=== PATIENT | male | born 1960 | race Caucasian/White ===

== ENCOUNTER 2018-09-20 18:09 | Inpatient (IN) ==
[2018-09-20 18:52] LABS: Basophils % 0.2 % (0.0-0.8); Eosinophils % 0.1 % (0.00-10.9); Hematocrit 40.2 VOL% (42.0-52.0); Hemoglobin 12.9 GM/DL (14.0-18.0); Immature Granulocytes % 2.7 %; Immature Granulocytes Absolute 0.32 #; Lymphocytes # 1.1 10*3/uL (1.4-4.0); Lymphocytes % 9.8 % (21.2-54.2); Mean Corpuscular HGB Conc 32.1 GM/DL (32-36); Mean Corpuscular Hemoglobin 27 PG (27-34); Mean Corpuscular Volume 85.4 FL (87-102); Mean Platelet Volume 10.3 FL (9.6-12.0); Monocytes # 0.6 10*3/uL (0.11-0.8); Monocytes % 5.1 % (1.7-12.7); NRBC # 0.03 10*3/uL; Neutrophils # 9.6 10*3/uL (1.4-7.4); Neutrophils % 82.1 % (38.7-73.9); Platelet Count 253 T/CUMM (130-400); Red Blood Count 4.71 MC/CUMM (3.8-5.5); Red Cell Distribution Width 14.9 % (9.3-17.3); White Blood Count 11.7 T/CUMM (4-12)
[2018-09-20 19:05] LABS: Partial Thromboplastin Time 23.6 SECS (0-40)
[2018-09-20 19:10] LABS: Alanine Aminotransferase 17 U/L (16-61); Alkaline Phosphatase 46 U/L (45-117); Aspartate Amino Transferase 5 U/L (0-37); Blood Urea Nitrogen 12 MG/DL (7-18); Calcium 8.1 MG/DL (8.5-10.1); Glucose 349 MG/DL (74-106); Osmolality,Calculated 286.8 MOS/KG (273-304); Potassium 3.9 MMOL/L (3.5-5.1); Sodium 137 MMOL/L (136-145); Total Protein 7.1 G/DL (6.4-8.3); Troponin I 0.026 NG/ML (0.00-0.045)
[2018-09-20 19:11] LABS: Barbiturates Screen,Urine Negative (Negative); Benzodiazepines Screen,Urine Negative (Negative); Cannabinoid Screen,Urine Negative (Negative); Opiate Screen,Urine Negative (Negative); Phencyclidine Screen,Urine Negative (Negative)
[2018-09-20 19:25] LABS: Apearance,Urine Slightly Hazy (Clear); Bacteria,Urine Occasional /HPF (Few); Bilirubin,Urine Negative (Negative); Blood, Urine Negative (Negative); Glucose,Urine (UA) >=500 mg/dL (Negative); Hyaline Casts,Urine 15 /LPF (0-3); Ketones,Urine Negative (Negative); Mucus,Urine Occasional /LPF (Occasional); Nitrite,Urine Negative (Negative); Protein,Urine 100 MG/DL; RBC,Urine 3 /HPF (0-4); Urine Color Yellow (Yellow); Urine Specific Gravity 1.026 (1.001-1.035); WBC,Urine 3 /HPF (0-6)
[2018-09-20] MEDS ORDERED: ALTEPLASE 100 MG/100 ML BOTTLE ONE (19:44)
[2018-09-20] MEDS ORDERED: ALTEPLASE IV ONE (20:00)
[2018-09-20] MEDS ORDERED: ALTEPLASE 9 MG in PREMIX 1 EACH IV STA (20:00)
[2018-09-20] MEDS: SODIUM CHLORIDE 0.9% 1,000 ML IV SCH (23:45)
[2018-09-21 01:05] LABS: Basophils % 0.3 % (0.0-0.8); Eosinophils % 0.1 % (0.00-10.9); Hemoglobin 13.5 GM/DL (14.0-18.0); Immature Granulocytes % 2.7 %; Immature Granulocytes Absolute 0.38 #; Lymphocytes # 1.3 10*3/uL (1.4-4.0); Lymphocytes % 9.3 % (21.2-54.2); Mean Corpuscular HGB Conc 32.1 GM/DL (32-36); Mean Corpuscular Hemoglobin 28 PG (27-34); Mean Corpuscular Volume 85.7 FL (87-102); Mean Platelet Volume 11.7 FL (9.6-12.0); Monocytes # 0.8 10*3/uL (0.11-0.8); Monocytes % 5.4 % (1.7-12.7); NRBC # 0.02 10*3/uL; Neutrophils # 11.7 10*3/uL (1.4-7.4); Neutrophils % 82.2 % (38.7-73.9); Platelet Count 272 T/CUMM (130-400); Red Cell Distribution Width 15.4 % (9.3-17.3); White Blood Count 14.3 T/CUMM (4-12)
[2018-09-21] MEDS ORDERED: GLUCAGON 1 MG VIAL IM PRN (08:10)
[2018-09-21] MEDS ORDERED: DEXTROSE 50% 25 GM/50 ML SYRINGE IV PRN (08:10)
[2018-09-21] MEDS: INSULIN LISPRO 100 UNIT/ML SUBCUT SCH ×4 (09:28→21:31)
[2018-09-21] MEDS: INSULIN GLARGINE 100 UNIT/ML SUBCUT SCH (09:28)
[2018-09-21] MEDS: SODIUM CHLORIDE 0.9% 1,000 ML IV SCH (13:46)
[2018-09-21] MEDS: LABETALOL 20 MG/4 ML SYRINGE IV PRN ×3 (14:27→22:48)
[2018-09-21] MEDS: ASPIRIN CHEW 81 MG TABLET PO SCH (21:31)
[2018-09-21] MEDS: ATORVASTATIN 80 MG TABLET PO SCH (21:31)
[2018-09-21 21:34] LABS: Basophils % 0.1 % (0.0-0.8); Eosinophils % 0.2 % (0.00-10.9); Hematocrit 44.9 VOL% (42.0-52.0); Hemoglobin 14.4 GM/DL (14.0-18.0); Immature Granulocytes % 2.8 %; Immature Granulocytes Absolute 0.44 #; Lymphocytes % 6.1 % (21.2-54.2); Mean Corpuscular HGB Conc 32.1 GM/DL (32-36); Mean Corpuscular Hemoglobin 28 PG (27-34); Mean Corpuscular Volume 85.9 FL (87-102); Mean Platelet Volume 10.2 FL (9.6-12.0); Monocytes % 6.4 % (1.7-12.7); Neutrophils % 84.4 % (38.7-73.9); Platelet Count 270 T/CUMM (130-400); Red Blood Count 5.23 MC/CUMM (3.8-5.5); Red Cell Distribution Width 15.2 % (9.3-17.3); White Blood Count 15.5 T/CUMM (4-12)
[2018-09-21 22:12] LABS: Cholesterol 159 MG/DL (50-200); HDL Cholesterol 41 MG/DL (40-60); Risk Ratio 3.88; Triglycerides 120 MG/DL (2-150); Troponin I < 0.015 NG/ML (0.00-0.045)
[2018-09-22] MEDS: INSULIN LISPRO 100 UNIT/ML SUBCUT SCH ×7 (00:45→23:49)
[2018-09-22] MEDS: niCARdipine INJ 25 MG in SODIUM CHLORIDE 0.9% 240 ML IV PRN (01:28)
[2018-09-22 04:13] LABS: Basophils # 0.1 10*3/uL (0.0-0.2); Basophils % 0.3 % (0.0-0.8); Eosinophils % 0.1 % (0.00-10.9); Hematocrit 46.6 VOL% (42.0-52.0); Hemoglobin 14.8 GM/DL (14.0-18.0); Immature Granulocytes Absolute 0.62 #; Lymphocytes # 1.3 10*3/uL (1.4-4.0); Lymphocytes % 8.4 % (21.2-54.2); Mean Corpuscular HGB Conc 31.8 GM/DL (32-36); Mean Corpuscular Hemoglobin 27 PG (27-34); Mean Corpuscular Volume 86.3 FL (87-102); Mean Platelet Volume 10.5 FL (9.6-12.0); Monocytes # 1.2 10*3/uL (0.11-0.8); Monocytes % 7.5 % (1.7-12.7); Neutrophils # 12.2 10*3/uL (1.4-7.4); Neutrophils % 79.7 % (38.7-73.9); Platelet Count 281 T/CUMM (130-400); Red Cell Distribution Width 15.4 % (9.3-17.3); White Blood Count 15.4 T/CUMM (4-12)
[2018-09-22 04:32] LABS: Calcium 8.7 MG/DL (8.5-10.1); Osmolality,Calculated 281.5 MOS/KG (273-304); Potassium 3.4 MMOL/L (3.5-5.1)
[2018-09-22 04:55] LABS: Band Neutrophils 5 % (0-10); Lymphocytes 10 % (20-55); Segmented Neutrophils 81 % (50-85); Total Cells Counted 100
[2018-09-22 04:56] LABS: Anisocytosis 1+; Platelet Estimate Normal
[2018-09-22] MEDS: INSULIN GLARGINE 100 UNIT/ML SUBCUT SCH (09:04)
[2018-09-22] MEDS: ASPIRIN CHEW 81 MG TABLET PO SCH (09:06)
[2018-09-22] MEDS ORDERED: DEXTROSE 50% 25 GM/50 ML SYRINGE IV PRN (10:21)
[2018-09-22] MEDS: LABETALOL 20 MG/4 ML SYRINGE IV PRN (16:52)
[2018-09-22] MEDS: ATORVASTATIN 80 MG TABLET PO SCH (20:14)
[2018-09-23] MEDS: INSULIN LISPRO 100 UNIT/ML SUBCUT SCH ×5 (04:14→22:48)
[2018-09-23 04:50] LABS: ABG Base Excess 1.6 MMOL/L (-2.5-2.5); ABG HCO3 25.8 MMOL/L (20-26); ABG PH 7.459 (7.35-7.45); ABG PO2 85.7 MM HG (80-95); ABG TCO2 20.9 MMOL/L (23-27); Allen Test Positive
[2018-09-23 04:56] LABS: Basophils % 0.3 % (0.0-0.8); Eosinophils % 0.1 % (0.00-10.9); Hematocrit 46.5 VOL% (42.0-52.0); Immature Granulocytes % 5.3 %; Immature Granulocytes Absolute 0.83 #; Lymphocytes # 1.4 10*3/uL (1.4-4.0); Lymphocytes % 9.1 % (21.2-54.2); Mean Corpuscular HGB Conc 32.3 GM/DL (32-36); Mean Corpuscular Hemoglobin 28 PG (27-34); Mean Corpuscular Volume 85.3 FL (87-102); Mean Platelet Volume 10.9 FL (9.6-12.0); Monocytes # 1.4 10*3/uL (0.11-0.8); Monocytes % 9.1 % (1.7-12.7); NRBC # 0.02 10*3/uL; Neutrophils # 11.9 10*3/uL (1.4-7.4); Neutrophils % 76.1 % (38.7-73.9); Platelet Count 298 T/CUMM (130-400); Red Blood Count 5.45 MC/CUMM (3.8-5.5); Red Cell Distribution Width 15.5 % (9.3-17.3); White Blood Count 15.7 T/CUMM (4-12)
[2018-09-23 04:57] LABS: Calcium 8.5 MG/DL (8.5-10.1); Osmolality,Calculated 284.5 MOS/KG (273-304); Potassium 3.4 MMOL/L (3.5-5.1)
[2018-09-23 05:06] LABS: Prealbumin 15.4 MG/DL (20-40)
[2018-09-23 06:12] LABS: Lymphocytes 14 % (20-55); Platelet Estimate Normal; Segmented Neutrophils 81 % (50-85); Total Cells Counted 100
[2018-09-23] MEDS: INSULIN GLARGINE 100 UNIT/ML SUBCUT SCH (08:47)
[2018-09-23] MEDS: ASPIRIN CHEW 81 MG TABLET PO SCH (08:48)
[2018-09-23] MEDS: LABETALOL 20 MG/4 ML SYRINGE IV PRN ×2 (10:41→15:36)
[2018-09-23] MEDS: POTASSIUM CHLORIDE 20 MEQ/15 ML UDCUP PER TUBE SCH ×2 (16:40→22:53)
[2018-09-23] MEDS: niCARdipine INJ 25 MG in SODIUM CHLORIDE 0.9% 240 ML IV PRN (18:19)
[2018-09-23] MEDS: ATORVASTATIN 80 MG TABLET PO SCH (22:53)
[2018-09-24] MEDS: INSULIN LISPRO 100 UNIT/ML SUBCUT SCH ×6 (00:58→21:46)
[2018-09-24] MEDS: POTASSIUM CHLORIDE 20 MEQ/15 ML UDCUP PER TUBE SCH (01:01)
[2018-09-24 03:49] LABS: Allen Test Positive
[2018-09-24 03:51] LABS: ABG Base Excess 0.7 MMOL/L (-2.5-2.5); ABG HCO3 23.5 MMOL/L (20-26); ABG Oxygen Saturation 95.5 % (95-100); ABG PCO2 32.8 MM HG (35-48); ABG PH 7.473 (7.35-7.45); ABG PO2 71.5 MM HG (80-95); ABG TCO2 24.5 MMOL/L (23-27)
[2018-09-24 05:53] LABS: Basophils % 0.2 % (0.0-0.8); Hematocrit 46.5 VOL% (42.0-52.0); Hemoglobin 14.9 GM/DL (14.0-18.0); Immature Granulocytes % 3.2 %; Immature Granulocytes Absolute 0.65 #; Lymphocytes # 1.4 10*3/uL (1.4-4.0); Mean Corpuscular Hemoglobin 27 PG (27-34); Mean Corpuscular Volume 85.2 FL (87-102); Mean Platelet Volume 10.8 FL (9.6-12.0); Monocytes # 2.2 10*3/uL (0.11-0.8); Monocytes % 10.9 % (1.7-12.7); Neutrophils # 15.8 10*3/uL (1.4-7.4); Neutrophils % 78.7 % (38.7-73.9); Platelet Count 318 T/CUMM (130-400); Red Blood Count 5.46 MC/CUMM (3.8-5.5); Red Cell Distribution Width 15.4 % (9.3-17.3); White Blood Count 20.2 T/CUMM (4-12)
[2018-09-24 06:08] LABS: Calcium 8.9 MG/DL (8.5-10.1); Osmolality,Calculated 292.4 MOS/KG (273-304); Potassium 4.2 MMOL/L (3.5-5.1)
[2018-09-24 06:53] LABS: Band Neutrophils 2 % (0-10); Hypochromasia 1+; Lymphocytes 10 % (20-55); Platelet Estimate Adequate; Segmented Neutrophils 80 % (50-85); Total Cells Counted 100
[2018-09-24] MEDS: ASPIRIN CHEW 81 MG TABLET PO SCH (08:26)
[2018-09-24] MEDS: INSULIN GLARGINE 100 UNIT/ML SUBCUT SCH (08:27)
[2018-09-24] MEDS ORDERED: INSULIN GLARGINE 100 UNIT/ML SUBCUT SCH (12:53)
[2018-09-24] MEDS: ATORVASTATIN 80 MG TABLET PO SCH (21:46)
[2018-09-25] MEDS: INSULIN LISPRO 100 UNIT/ML SUBCUT SCH ×6 (00:40→20:28)
[2018-09-25] MEDS: LABETALOL 20 MG/4 ML SYRINGE IV PRN (01:49)
[2018-09-25 04:06] LABS: Basophils # 0.1 10*3/uL (0.0-0.2); Basophils % 0.3 % (0.0-0.8); Eosinophils % 0.2 % (0.00-10.9); Hematocrit 46.8 VOL% (42.0-52.0); Hemoglobin 14.8 GM/DL (14.0-18.0); Immature Granulocytes % 3.8 %; Immature Granulocytes Absolute 0.71 #; Lymphocytes # 1.5 10*3/uL (1.4-4.0); Lymphocytes % 7.7 % (21.2-54.2); Mean Corpuscular HGB Conc 31.6 GM/DL (32-36); Mean Corpuscular Hemoglobin 27 PG (27-34); Mean Corpuscular Volume 86.3 FL (87-102); Mean Platelet Volume 10.7 FL (9.6-12.0); Monocytes # 1.9 10*3/uL (0.11-0.8); Monocytes % 10.1 % (1.7-12.7); NRBC # 0.02 10*3/uL; Neutrophils # 14.8 10*3/uL (1.4-7.4); Neutrophils % 77.9 % (38.7-73.9); Platelet Count 342 T/CUMM (130-400); Red Blood Count 5.42 MC/CUMM (3.8-5.5); Red Cell Distribution Width 15.5 % (9.3-17.3); White Blood Count 18.9 T/CUMM (4-12)
[2018-09-25 04:31] LABS: Calcium 9.6 MG/DL (8.5-10.1); Osmolality,Calculated 294.4 MOS/KG (273-304); Potassium 4.2 MMOL/L (3.5-5.1)
[2018-09-25 05:20] LABS: Band Neutrophils 1 % (0-10); Lymphocytes 8 % (20-55); Segmented Neutrophils 76 % (50-85); Total Cells Counted 100
[2018-09-25 05:21] LABS: Platelet Estimate Adequate
[2018-09-25] MEDS: ASPIRIN CHEW 81 MG TABLET PO SCH (08:17)
[2018-09-25] MEDS: LACTATED RINGERS 1,000 ML IV SCH ×2 (09:37→17:38)
[2018-09-25] MEDS ORDERED: INSULIN GLARGINE 100 UNIT/ML SUBCUT SCH (15:54)
[2018-09-25] MEDS ORDERED: LEVALBUTEROL 1.25 MG/3 ML NEB RESP TX PRN (20:13)
[2018-09-25] MEDS: ATORVASTATIN 80 MG TABLET PO SCH (20:28)
[2018-09-25] MEDS: niCARdipine INJ 25 MG in SODIUM CHLORIDE 0.9% 240 ML IV PRN (23:00)
[2018-09-25] MEDS ORDERED: ACETYLCYSTEINE 20% 800 MG/4 ML VIAL RESP TX SCH (23:00)
[2018-09-26 01:06] LABS: ABG HCO3 27.9 MMOL/L (20-26); ABG Oxygen Saturation 93.7 % (95-100); ABG PCO2 40.4 MM HG (35-48); ABG PH 7.453 (7.35-7.45); ABG PO2 71.1 MM HG (80-95); ABG TCO2 23.9 MMOL/L (23-27); Allen Test Positive
[2018-09-26] MEDS: INSULIN LISPRO 100 UNIT/ML SUBCUT SCH ×6 (01:35→21:22)
[2018-09-26] MEDS: ACETAMINOPHEN 325 MG TABLET PO PRN ×3 (01:35→21:52)
[2018-09-26 01:48] LABS: Basophils % 0.2 % (0.0-0.8); Hematocrit 46.8 VOL% (42.0-52.0); Hemoglobin 14.5 GM/DL (14.0-18.0); Immature Granulocytes % 2.5 %; Immature Granulocytes Absolute 0.49 #; Lymphocytes # 1.4 10*3/uL (1.4-4.0); Lymphocytes % 7.1 % (21.2-54.2); Mean Corpuscular Hemoglobin 27 PG (27-34); Mean Corpuscular Volume 88.5 FL (87-102); Mean Platelet Volume 10.8 FL (9.6-12.0); Monocytes # 2.3 10*3/uL (0.11-0.8); Monocytes % 11.8 % (1.7-12.7); NRBC # 0.02 10*3/uL; Neutrophils # 15.1 10*3/uL (1.4-7.4); Neutrophils % 78.4 % (38.7-73.9); Platelet Count 370 T/CUMM (130-400); Red Blood Count 5.29 MC/CUMM (3.8-5.5); Red Cell Distribution Width 15.4 % (9.3-17.3); White Blood Count 19.3 T/CUMM (4-12)
[2018-09-26 02:00] LABS: Albumin 2.7 G/DL (3.4-5.0); Bilirubin,Total 0.6 MG/DL (0.2-1.0); Calcium 9.4 MG/DL (8.5-10.1); Osmolality,Calculated 302.1 MOS/KG (273-304); Potassium 4.5 MMOL/L (3.5-5.1); Total Protein 7.8 G/DL (6.4-8.3)
[2018-09-26 02:01] LABS: Prealbumin 10.1 MG/DL (20-40)
[2018-09-26] MEDS: PIPERACILLIN/TAZOBACTAM 3,375 MG in SODIUM CHLORIDE 0.9% 100 ML IV SCH ×3 (02:08→18:00)
[2018-09-26] MEDS: LACTATED RINGERS 1,000 ML IV SCH ×3 (02:54→21:53)
[2018-09-26] MEDS ORDERED: ACETAMINOPHEN 500 MG TABLET PO ONE (06:08)
[2018-09-26] MEDS: ASPIRIN CHEW 81 MG TABLET PO SCH (09:31)
[2018-09-26] MEDS: LABETALOL 20 MG/4 ML SYRINGE IV PRN ×2 (12:59→22:04)
[2018-09-26] MEDS: LORazepam 2 MG/1 ML VIAL IV PRN ×3 (14:22→23:32)
[2018-09-26] MEDS: MORPHINE 4 MG/1 ML VIAL IV PRN ×3 (14:24→23:32)
[2018-09-26] MEDS: ATORVASTATIN 80 MG TABLET PO SCH (21:53)
[2018-09-27] MEDS: INSULIN LISPRO 100 UNIT/ML SUBCUT SCH ×5 (01:20→16:43)
[2018-09-27] MEDS: MORPHINE 4 MG/1 ML VIAL IV PRN ×8 (01:25→21:59)
[2018-09-27] MEDS: LORazepam 2 MG/1 ML VIAL IV PRN ×7 (01:25→23:49)
[2018-09-27] MEDS: PIPERACILLIN/TAZOBACTAM 3,375 MG in SODIUM CHLORIDE 0.9% 100 ML IV SCH (03:05)
[2018-09-27] MEDS: ACETAMINOPHEN 325 MG TABLET PO PRN ×3 (03:05→14:11)
[2018-09-27] MEDS: LACTATED RINGERS 1,000 ML IV SCH (05:50)
[2018-09-27] MEDS: LABETALOL 20 MG/4 ML SYRINGE IV PRN (08:00)
[2018-09-27] MEDS: IBUPROFEN 600 MG TABLET PO PRN ×2 (09:16→23:48)
[2018-09-28] MEDS: MORPHINE 4 MG/1 ML VIAL IV PRN (04:34)
[2018-09-28] MEDS: ACETAMINOPHEN 325 MG TABLET PO PRN (04:34)
[2018-09-28 04:55] VITALS: BP 114/78
== END 2018-09-28 08:23 | disposition expired | DRG 64 ==
LOC: EDUNIT# → EDBD → N.ED 18:09 → SUATTDRO 20:10 → N.EDINP 20:10 → N.CC 21:27 → N.2E 09-27 21:29
PROVIDERS: ADMIT Internal Medicine; ATTEND Hospitalist